=== PATIENT | male | born 1950 | race African-American/Black ===

== ENCOUNTER 2025-04-02 10:46 | Inpatient (IN) | payer OTHER ==
[~2025-04-02] VITALS: Ht 182.9 cm; Wt 83.9 kg
[2025-04-02 10:53] VITALS: O2SAT 100
[2025-04-02 11:33] LABS: MEAN PLATELET VOLUME 6.9 fl (7.4-10.4); PLATELET 329 x1000/uL (130-400); RED BLOOD CELL COUNT 1.38 mill/uL (4.7-6.1); RED CELL DISTRIBUTION WIDTH 14.5 % (11.6-14.6)
[2025-04-02] MEDS: IOHEXOL-350 100 ML BOTTLE ONE (11:41)
[2025-04-02 11:44] LABS: HEMATOCRIT. 12.8 % (42.0-52.0); HEMOGLOBIN. 3.7 g/dL (14.0-18.0)
[2025-04-02 11:48] LABS: INR 1.2
[2025-04-02 11:53] LABS: CREATININE 0.9 mg/dL (0.6-1.3); ETHANOL BLOOD < 10 mg/dL (<10); TROPONIN I HIGH SENSITIVITY 8 ng/L (3.0-53); UREA NITROGEN BLOOD 26 mg/dL (9-23)
[2025-04-02 11:54] LABS: ASPARTATE AMINOTRANSFERASE 11 IU/L (<34); PROTEIN TOTAL 4.8 g/dL (6.0-8.3)
[2025-04-02 11:55] LABS: BILIRUBIN DIRECT 0.2 mg/dL (<=3.0); BILIRUBIN TOTAL 0.4 mg/dL (0.1-1.0)
[2025-04-02 13:28] LABS: BAND% 3.0 % (1.0-6.0); LYMPHOCYTES % MANUAL 3.0 % (20.0-50.0); MONOCYTES % MANUAL 7.0 % (2.0-8.0); NEUTROPHILS % MANUAL 87.0 % (45.0-75.0); NUCLEATED RED BLOOD CELLS 2 /100 WBC; PLATELET ESTIMATE NORMAL
[2025-04-02] MEDS ORDERED: ACETAMINOPHEN 325MG TABLET PO PRN (13:45)
[2025-04-02] MEDS ORDERED: DOCUSATE SODIUM 100MG CAPSULE PO PRN (13:45)
[2025-04-02] MEDS ORDERED: DEXTROSE 50% WATER 50ML SYRINGE IV PRN (13:45)
[2025-04-02] MEDS ORDERED: ONDANSETRON HCL 4MG/2ML INJ IV PRN (13:45)
[2025-04-02] MEDS ORDERED: CLONIDINE 0.1MG TABLET PO PRN (13:45)
[2025-04-02] MEDS ORDERED: IPRATROPIUM/ALBUTEROL 0.5-3(2.5)MG/3ML NEB HHN PRN (13:45)
[2025-04-02] MEDS ORDERED: GUAIFENESIN 200MG/10ML SUGAR FREE UDC PO PRN (13:45)
[2025-04-02] MEDS: LACTATED RINGERS 1,000 ML IV SCH (14:00)
[2025-04-02 15:45] VITALS: BP 122/60; PULSE 96; RESP 16; TEMP 36.8628
[2025-04-02 16:59] LABS: PHOSPHORUS 4.4 mg/dL (2.5-4.9)
[2025-04-02 17:30] LABS: HEPATITIS C AB NON REACTIVE (Neg) (Negative)
[2025-04-02] MEDS: BLOOD SUGAR DIAGNOSTIC STRIP TEST SCH (18:10)
[2025-04-02] MEDS: INSULIN LISPRO 100 UNITS/ML SUBCUT SCH (18:24)
[2025-04-02 19:01] LABS: *AMPHETAMINES SCREEN URINE NEGATIVE (NEGATIVE); *BARBITURATES SCREEN URINE NEGATIVE (NEGATIVE); *BENZODIAZEPINES SCREEN URINE NEGATIVE (NEGATIVE); *COCAINE SCREEN URINE PRESUMPTIVE POSITIVE (NEGATIVE); CANNABINOID URINE SCREEN NEGATIVE (NEGATIVE); METHADONE URINE SCREEN NEGATIVE (NEGATIVE); OPIATES URINE SCREEN NEGATIVE (NEGATIVE); PHENCYCLIDINE URINE SCREEN NEGATIVE (NEGATIVE)
[2025-04-02 19:02] LABS: ECSTASY MDMA SCREEN URINE NEGATIVE (NEGATIVE)
[2025-04-02 19:14] LABS: GLUCOSE URINE 3+ (NEGATIVE); KETONES URINE NEGATIVE (NEGATIVE); LEUKOCYTE ESTERASE URINE 1+ (NEGATIVE); NITRITE URINE POSITIVE (NEGATIVE); OCCULT BLOOD URINE 3+ (NEGATIVE); PH URINE 6.5 (4.5-8.0); PROTEIN URINE 4+ (NEGATIVE); SPECIFIC GRAVITY URINE 1.041 (1.005-1.030); UROBILINOGEN URINE 0.2 E.U./dL (0.2-1.0)
[2025-04-02 19:34] LABS: CLARITY URINE BLOODY (CLEAR); COLOR URINE BLOODY (YELLOW)
[2025-04-02 19:37] LABS: BACTERIA URINE TRACE; RBC URINE TNTC /hpf (0-2); WBC URINE 15-25 /hpf (0-2)
[2025-04-02] MEDS: PANTOPRAZOLE SODIUM 40 MG/VIAL IV SCH (19:45)
[2025-04-02 20:00] VITALS: BP 112/63; PULSE 84; RESP 18; TEMP 36.8; O2SAT 98
[2025-04-02 23:48] VITALS: BP 117/65; PULSE 89; RESP 18; TEMP 36.89184
[2025-04-03] VITALS (12 sets, daily range): BP systolic 104–165; BP diastolic 62–104; PULSE 77–121; RESP 16–20; TEMP 35.33616–36.89184; O2SAT 96–100
[2025-04-03] MEDS: LORAZEPAM 0.5MG TABLET PO PRN (00:31)
[2025-04-03] MEDS: ACETAMINOPHEN 325MG TABLET PO PRN (01:34)
[2025-04-03] MEDS: KETOROLAC 15MG/ML VIAL IV NR (02:05)
[2025-04-03] MEDS: LORAZEPAM 2MG/ML UD SYRINGE IV NR (04:42)
[2025-04-03] MEDS ORDERED: CALCIUM GLUCONATE 1GM PREMIX 50 ML IV ONE (08:15)
[2025-04-03 11:59] LABS: PLATELET 261 x1000/uL (130-400); RED BLOOD CELL COUNT 2.58 mill/uL (4.7-6.1); RED CELL DISTRIBUTION WIDTH 13.9 % (11.6-14.6)
[2025-04-03] MEDS: CEFTRIAXONE 1GM/50ML 50 ML IV SCH (13:14)
[2025-04-03] MEDS: CALCIUM GLUCONATE 1,000 MG in SODIUM CHLORIDE 0.9% 50 ML IV SCH (13:55)
[2025-04-03] MEDS: IRON SUCROSE COMPLEX 100 MG/5 ML ML IV SCH (22:04)
[2025-04-04] VITALS (10 sets, daily range): BP systolic 102–154; BP diastolic 60–88; PULSE 78–97; RESP 15–19; TEMP 35.9–37; O2SAT 95–100
[2025-04-04 13:07] LABS: BASOPHILS % 0.1 % (0.0-2.0); EOSINOPHILS % 0.4 % (0.0-5.0); HEMATOCRIT. 22.3 % (42.0-52.0); LYMPHOCYTES % 9.5 % (20.0-50.0); MEAN PLATELET VOLUME 7.3 fl (7.4-10.4); MONOCYTES % 8.7 % (2.0-8.0); NEUTROPHILS % 81.3 % (40.0-76.0); PLATELET 246 x1000/uL (130-400); RED BLOOD CELL COUNT 2.55 mill/uL (4.7-6.1); RED CELL DISTRIBUTION WIDTH 15.4 % (11.6-14.6)
[2025-04-04 13:09] LABS: HEMOGLOBIN. 7.1 g/dL (14.0-18.0)
[2025-04-04 13:11] LABS: CREATININE 0.7 mg/dL (0.6-1.3); UREA NITROGEN BLOOD 20 mg/dL (9-23)
[2025-04-05] VITALS: BP 154/86; PULSE 89; RESP 18; TEMP 36.6; O2SAT 98
[2025-04-05 04:00] VITALS: BP 136/82; PULSE 95; RESP 18; TEMP 36.2; O2SAT 97
[2025-04-05 08:00] VITALS: BP 136/93; PULSE 86; RESP 15; TEMP 36.2; O2SAT 95
[2025-04-05 12:00] VITALS: BP 110/70; PULSE 75; RESP 15; TEMP 37.1; O2SAT 98
[2025-04-05 12:05] LABS: LDL CHOLESTEROL 44.0 mg/dL (5-100); TRIGLYCERIDE 119.0 mg/dL (0-150)
[2025-04-05 12:07] LABS: T4 FREE 1.06 ng/dL (0.89-1.76)
[2025-04-05] MEDS: TAMSULOSIN HCL 0.4MG SR CAPSULE PO SCH (12:54)
[2025-04-05 16:00] VITALS: BP 118/63; PULSE 69; RESP 15; TEMP 36.8; O2SAT 96
[2025-04-05 18:03] LABS: BASOPHILS % 0.2 % (0.0-2.0); EOSINOPHILS % 2.0 % (0.0-5.0); HEMATOCRIT. 21.7 % (42.0-52.0); LYMPHOCYTES % 18.2 % (20.0-50.0); MEAN PLATELET VOLUME 7.6 fl (7.4-10.4); MONOCYTES % 11.2 % (2.0-8.0); NEUTROPHILS % 68.4 % (40.0-76.0); PLATELET 260 x1000/uL (130-400); RED BLOOD CELL COUNT 2.43 mill/uL (4.7-6.1); RED CELL DISTRIBUTION WIDTH 16.2 % (11.6-14.6)
[2025-04-05 18:09] LABS: CREATINE KINASE MB FRACTION 1.8 ng/mL (0.5-3.6); TROPONIN I HIGH SENSITIVITY 6 ng/L (3.0-53)
[2025-04-05 18:10] LABS: CREATININE 0.6 mg/dL (0.6-1.3); UREA NITROGEN BLOOD 13 mg/dL (9-23)
[2025-04-05 18:12] LABS: HEMOGLOBIN. 7.0 g/dL (14.0-18.0)
[2025-04-05 18:16] LABS: FOLIC ACID (FOLATE) SERUM 12.37 ng/mL (>5.38); VITAMIN B12 SERUM 662 pg/mL (211-911)
[2025-04-05] MEDS: ACETAMINOPHEN 325MG TABLET PO SCH (19:06)
[2025-04-05 20:00] VITALS: BP 96/52; PULSE 78; RESP 19; TEMP 37.1; O2SAT 98
[2025-04-05] MEDS ORDERED: NALOXONE HCL 0.4MG/ML VIAL IV PRN (20:00)
[2025-04-05] MEDS: MELATONIN 3MG TABLET PO SCH (23:37)
[2025-04-05] MEDS ORDERED: IOHEXOL-300 100 ML BOTTLE ONE (23:42)
[2025-04-06] VITALS (12 sets, daily range): BP systolic 100–126; BP diastolic 59–85; PULSE 68–85; RESP 16–19; TEMP 35.9–37.2252; O2SAT 96–100
[2025-04-06 00:50] LABS: CREATINE KINASE MB FRACTION 1.3 ng/mL (0.5-3.6); TROPONIN I HIGH SENSITIVITY 6 ng/L (3.0-53)
[2025-04-06 07:30] LABS: CREATINE KINASE MB FRACTION 1.3 ng/mL (0.5-3.6)
[2025-04-06] MEDS: FERROUS SULFATE 325MG TABLET PO SCH (09:30)
[2025-04-06] MEDS: ASCORBIC ACID 500 MG TABLET PO SCH (09:31)
[2025-04-06 11:15] LABS: CREATININE 0.6 mg/dL (0.6-1.3); UREA NITROGEN BLOOD 10 mg/dL (9-23)
[2025-04-06 11:17] LABS: TROPONIN I HIGH SENSITIVITY 6 ng/L (3.0-53)
[2025-04-06 11:18] LABS: MEAN PLATELET VOLUME 7.4 fl (7.4-10.4)
[2025-04-06] MEDS: TRAMADOL 50MG TABLET PO PRN (11:28)
[2025-04-06 11:29] LABS: BASOPHILS % 0.1 % (0.0-2.0); EOSINOPHILS % 4.0 % (0.0-5.0); HEMATOCRIT. 21.3 % (42.0-52.0); LYMPHOCYTES % 24.9 % (20.0-50.0); MONOCYTES % 10.7 % (2.0-8.0); NEUTROPHILS % 60.3 % (40.0-76.0); PLATELET 256 x1000/uL (130-400); RED BLOOD CELL COUNT 2.38 mill/uL (4.7-6.1); RED CELL DISTRIBUTION WIDTH 15.7 % (11.6-14.6)
[2025-04-06 11:39] LABS: HEMOGLOBIN. 6.8 g/dL (14.0-18.0)
[2025-04-07] VITALS (7 sets, daily range): BP systolic 110–132; BP diastolic 53–71; PULSE 69–79; RESP 15–20; TEMP 36.16956–36.8; O2SAT 100
[2025-04-07 00:35] LABS: INR 1.0
[2025-04-07 04:34] LABS: INR 1.0
[2025-04-07 04:44] LABS: CREATININE 0.6 mg/dL (0.6-1.3); UREA NITROGEN BLOOD 9 mg/dL (9-23)
[2025-04-07 04:59] LABS: BASOPHILS % 0.2 % (0.0-2.0); EOSINOPHILS % 2.7 % (0.0-5.0); HEMATOCRIT. 22.0 % (42.0-52.0); HEMOGLOBIN. 7.1 g/dL (14.0-18.0); LYMPHOCYTES % 19.0 % (20.0-50.0); MEAN PLATELET VOLUME 7.3 fl (7.4-10.4); MONOCYTES % 10.7 % (2.0-8.0); NEUTROPHILS % 67.4 % (40.0-76.0); PLATELET 274 x1000/uL (130-400); RED BLOOD CELL COUNT 2.48 mill/uL (4.7-6.1); RED CELL DISTRIBUTION WIDTH 15.8 % (11.6-14.6)
[2025-04-07] MEDS ORDERED: MEPERIDINE HCL/PF 25MG/ML CPJ IV PRN (11:00)
[2025-04-07] MEDS ORDERED: HYDRALAZINE 20MG/ML VIAL IV PRN ×2 (11:00)
[2025-04-07] MEDS ORDERED: FAMOTIDINE 20MG/2ML VIAL IV PRN (11:00)
[2025-04-07] MEDS ORDERED: LABETALOL 5MG/ML 4ML INJ IV PRN (11:00)
[2025-04-07] MEDS ORDERED: ONDANSETRON HCL 4MG/2ML INJ IV PRN (11:00)
[2025-04-07] MEDS ORDERED: HYDROMORPHONE HCL/PF 1MG/ML INJ IV PRN (11:00)
[2025-04-07] MEDS ORDERED: ACETAMINOPHEN 1,000MG/100ML PREMIX IV PRN (11:00)
[2025-04-07] MEDS ORDERED: ACETAMINOPHEN 1000MG/100ML 100 ML IV PRN (11:30)
[2025-04-07] MEDS: PANTOPRAZOLE 40MG DR TABLET PO SCH (22:58)
[2025-04-08] VITALS (15 sets, daily range): BP systolic 112–145; BP diastolic 62–83; PULSE 64–95; RESP 17–18; TEMP 36.1–36.7; O2SAT 96–99
[2025-04-08 17:23] LABS: BASOPHILS % 0.3 % (0.0-2.0); EOSINOPHILS % 2.4 % (0.0-5.0); HEMATOCRIT. 29.0 % (42.0-52.0); HEMOGLOBIN. 9.5 g/dL (14.0-18.0); LYMPHOCYTES % 14.2 % (20.0-50.0); MEAN PLATELET VOLUME 7.3 fl (7.4-10.4); MONOCYTES % 10.5 % (2.0-8.0); NEUTROPHILS % 72.6 % (40.0-76.0); PLATELET 272 x1000/uL (130-400); RED BLOOD CELL COUNT 3.27 mill/uL (4.7-6.1); RED CELL DISTRIBUTION WIDTH 16.3 % (11.6-14.6)
[2025-04-08 17:41] LABS: CREATININE 0.6 mg/dL (0.6-1.3); UREA NITROGEN BLOOD 8 mg/dL (9-23)
[2025-04-09] VITALS: BP 106/69; PULSE 75; RESP 18; TEMP 36.5; O2SAT 98
[2025-04-09 04:00] VITALS: BP 121/75; PULSE 71; RESP 18; TEMP 36.6; O2SAT 98
[2025-04-09] MEDS ORDERED: ETOMIDATE 2MG/ML 10ML VIAL IV ONE (06:59)
[2025-04-09] MEDS ORDERED: PROPOFOL 200MG/20ML VIAL IV ONE (06:59)
[2025-04-09] MEDS ORDERED: ONDANSETRON HCL 4MG/2ML INJ ONE (06:59)
[2025-04-09] MEDS ORDERED: MIDAZOLAM HCL 2 MG/2 ML VIAL ONE (06:59)
[2025-04-09] MEDS ORDERED: FENTANYL CITRATE/PF 50MCG/ML 2ML VIAL ONE (06:59)
[2025-04-09] MEDS ORDERED: DEXAMETHASONE 4MG/ML 1ML VIAL ONE (06:59)
[2025-04-09] MEDS: SUCRALFATE 1G TABLET PO SCH (07:20)
[2025-04-09 07:45] LABS: INR 1.0
[2025-04-09 07:59] LABS: CREATININE 0.5 mg/dL (0.6-1.3); UREA NITROGEN BLOOD 7 mg/dL (9-23)
[2025-04-09] MEDS ORDERED: HYDROMORPHONE HCL/PF 1MG/ML INJ IV PRN (09:15)
[2025-04-09] MEDS ORDERED: MEPERIDINE HCL/PF 25MG/ML CPJ IV PRN (09:15)
[2025-04-09] MEDS ORDERED: FAMOTIDINE 20MG/2ML VIAL IV PRN (09:15)
[2025-04-09] MEDS ORDERED: LABETALOL 5MG/ML 4ML INJ IV PRN (09:15)
[2025-04-09] MEDS ORDERED: ONDANSETRON HCL 4MG/2ML INJ IV PRN (09:15)
[2025-04-09] MEDS ORDERED: HYDRALAZINE 20MG/ML VIAL IV PRN ×2 (09:15)
[2025-04-09] MEDS ORDERED: ACETAMINOPHEN 1,000MG/100ML PREMIX IV PRN (09:15)
[2025-04-09 12:00] VITALS: BP 127/76; PULSE 76; RESP 18; TEMP 36.1; O2SAT 100
[2025-04-09 16:00] VITALS: BP 106/72; PULSE 80; RESP 17; TEMP 36.2; O2SAT 98
[2025-04-09] MEDS: INSULIN LISPRO 100 UNITS/ML SUBCUT SCH (19:05)
[2025-04-09 20:00] VITALS: BP 116/63; PULSE 81; RESP 18; TEMP 37.2; O2SAT 97
[2025-04-10] VITALS: BP 108/57; PULSE 74; RESP 17; TEMP 36.7; O2SAT 98
[2025-04-10 04:00] VITALS: BP 125/80; PULSE 67; RESP 19; TEMP 36.4; O2SAT 98
[2025-04-10 08:00] VITALS: BP 98/59; PULSE 75; RESP 15; TEMP 36.9; O2SAT 96
[2025-04-10 12:00] VITALS: BP 114/71; PULSE 103; RESP 16; TEMP 36.6; O2SAT 95
[2025-04-10 16:00] VITALS: BP 116/66; PULSE 74; RESP 17; TEMP 36.4; O2SAT 95
[2025-04-10 20:00] VITALS: BP 112/50; PULSE 74; RESP 19; TEMP 36.7; O2SAT 96
[2025-04-11] VITALS: BP 152/74; PULSE 74; RESP 18; TEMP 36.8; O2SAT 97
[2025-04-11 04:00] VITALS: BP 122/72; PULSE 73; RESP 18; TEMP 37.1; O2SAT 96
[2025-04-11 08:00] VITALS: BP 126/72; PULSE 65; RESP 20; TEMP 36.4; O2SAT 99
[2025-04-11 08:08] LABS: BASOPHILS % 0.5 % (0.0-2.0); EOSINOPHILS % 2.6 % (0.0-5.0); HEMATOCRIT. 26.7 % (42.0-52.0); HEMOGLOBIN. 8.8 g/dL (14.0-18.0); LYMPHOCYTES % 17.6 % (20.0-50.0); MEAN PLATELET VOLUME 7.4 fl (7.4-10.4); MONOCYTES % 9.3 % (2.0-8.0); NEUTROPHILS % 70.0 % (40.0-76.0); PLATELET 292 x1000/uL (130-400); RED BLOOD CELL COUNT 3.00 mill/uL (4.7-6.1); RED CELL DISTRIBUTION WIDTH 16.1 % (11.6-14.6)
[2025-04-11 08:15] LABS: CREATININE 0.6 mg/dL (0.6-1.3); UREA NITROGEN BLOOD 14 mg/dL (9-23)
[2025-04-11 12:00] VITALS: BP 116/62; PULSE 72; RESP 18; TEMP 36.6; O2SAT 100
[2025-04-11 16:00] VITALS: BP 100/53; PULSE 79; RESP 19; TEMP 36.5; O2SAT 100
[2025-04-11 20:00] VITALS: BP 140/68; PULSE 72; RESP 16; TEMP 36.2; O2SAT 98
[2025-04-12] VITALS: BP 133/63; PULSE 78; RESP 17; TEMP 36.4; O2SAT 99
[2025-04-12 04:00] VITALS: BP 122/58; PULSE 67; RESP 16; TEMP 36.4; O2SAT 98
[2025-04-12 06:41] LABS: BASOPHILS % 0.4 % (0.0-2.0); EOSINOPHILS % 2.4 % (0.0-5.0); HEMATOCRIT. 26.6 % (42.0-52.0); HEMOGLOBIN. 8.8 g/dL (14.0-18.0); LYMPHOCYTES % 20.8 % (20.0-50.0); MEAN PLATELET VOLUME 7.5 fl (7.4-10.4); MONOCYTES % 10.0 % (2.0-8.0); NEUTROPHILS % 66.4 % (40.0-76.0); PLATELET 285 x1000/uL (130-400); RED BLOOD CELL COUNT 3.00 mill/uL (4.7-6.1); RED CELL DISTRIBUTION WIDTH 15.8 % (11.6-14.6)
[2025-04-12 07:43] LABS: CREATININE 0.5 mg/dL (0.6-1.3)
[2025-04-12 07:44] LABS: UREA NITROGEN BLOOD 11 mg/dL (9-23)
[2025-04-12 08:00] VITALS: BP 137/81; PULSE 69; RESP 17; TEMP 36.8; O2SAT 98
[2025-04-12 12:00] VITALS: BP 135/72; PULSE 72; RESP 18; TEMP 36.4; O2SAT 98
[2025-04-12 16:00] VITALS: BP 109/59; PULSE 78; RESP 18; TEMP 36.3; O2SAT 99
[2025-04-12] MEDS ORDERED: ASPI-1497 MT (17:32)
[2025-04-12] MEDS ORDERED: FERR-63 PO (17:32)
[2025-04-12] MEDS ORDERED: LIP40 PO (17:32)
[2025-04-12] MEDS ORDERED: TAMS-54 PO (17:32)
[2025-04-12 17:39] VITALS: BP 118/62; PULSE 72; RESP 18; TEMP 97.5
[2025-04-12] MEDS ORDERED: ATORVASTATIN CALCIUM 40MG TABLET PO SCH (21:00)
== END 2025-04-12 18:11 | disposition home or self-care (01) | DRG 987 ==
LOC: ER 10:46 → 6WST 12:12 → EDBEDREQTM 12:20 → EDBEDREQ 12:20
PROVIDERS: ADMIT Internal Medicine; ATTEND Internal Medicine
PROC: 30233N1 Transfusion of Nonautologous Red Blood Cells into Peripheral Vein, Percutaneous Approach (ICD-10-PCS; principal; 2025-04-02)
PROC: 0DB78ZX Excision of Stomach, Pylorus, Via Natural or Artificial Opening Endoscopic, Diagnostic (ICD-10-PCS; 2025-04-07)
PROC: 0TBB8ZZ Excision of Bladder, Via Natural or Artificial Opening Endoscopic (ICD-10-PCS; 2025-04-09)
DX: I63.81 Other cerebral infarction due to occlusion or stenosis of small artery (principal); K26.0 Acute duodenal ulcer with hemorrhage; K29.51 Unspecified chronic gastritis with bleeding; I65.03 Occlusion and stenosis of bilateral vertebral arteries; I69.351 Hemiplegia and hemiparesis following cerebral infarction affecting right dominant side; E83.51 Hypocalcemia; E87.1 Hypo-osmolality and hyponatremia; Z79.02 Long term (current) use of antithrombotics/antiplatelets; D50.0 Iron deficiency anemia secondary to blood loss (chronic); I10 Essential (primary) hypertension; K76.0 Fatty (change of) liver, not elsewhere classified; D49.4 Neoplasm of unspecified behavior of bladder; D72.829 Elevated white blood cell count, unspecified; F10.90 Alcohol use, unspecified, uncomplicated; F14.90 Cocaine use, unspecified, uncomplicated; R73.9 Hyperglycemia, unspecified; K57.30 Diverticulosis of large intestine without perforation or abscess without bleeding; R31.0 Gross hematuria; F17.210 Nicotine dependence, cigarettes, uncomplicated; Z79.82 Long term (current) use of aspirin
CPT/HCPCS: 36415; 70496; 70498; 70551; 71045; 74176; 74177; 80048; 80061; 80076; 80305; 80320; 81003; 82270; 82550; 82553; 82607; 82728; 82746; 82962; 83036; 83540; 83550; 83735; 83880; 84100; 84439; 84443; 84484; 85014; 85018; 85025; 85027; 85044; 85049; 85379; 85384; 86705; 86850; 86900; 86920; 87340; 88305; 92610; 93005; 93306; 93970; 97162; 97166; 97530; 99285; A4606; J0612; J0696; J1100; J1815; J1885; J2060; J2250; J2405; J2470; J2704; J3010; J3490; J7030; P9016; Q9967; G0480